=== PATIENT | male | born 2000 | race Hispanic/Latino ===

== ENCOUNTER 2020-03-02 18:48 | Emergency (ER) | payer OTHER, SELFPAY ==
--- NOTE | 2020-03-02 19:20 | ER ---
Nurse's Notes [facility] Name: Ike Rogers Age: 19 yrs Sex: Male : 2000 Arrival Date: 03/02/2020 Time: 18:50 Bed 17 Private MD: Diagnosis: Headache-Resolved Presentation: 03/02 19:08 Chief complaint: Patient states: missed work today because he had a migraine and had iw some chest pain but was boxing yesterday, his boss told him he needs a work note to be able to work tomorrow. Coronavirus screen: Proceed with normal triage. Patient denies a cough. Patient denies shortness of breath or difficulty breathing. Patient denies measured and/or subjective temperature greater than 100.4F prior to today's visit. Patient denies travel on a cruise ship or to a country the [facility] currently lists as an affected area. Patient denies contact with known and/or suspected case of COVID-19. Ebola Screen: Patient negative for fever greater than or equal to 101.5 degrees Fahrenheit, and additional compatible Ebola Virus Disease symptoms Patient denies exposure to infectious person. Patient denies travel to an Ebola-affected area in the 21 days before illness onset. No symptoms or risks identified at this time. Initial Sepsis Screen: Does the patient meet any 2 criteria? No. Patient's initial sepsis screen is negative. Does the patient have a suspected source of infection? No. Patient's initial sepsis screen is negative. Risk Assessment: Do you want to hurt yourself or someone else? Patient reports no desire to harm self or others. Onset of symptoms was March 02, 2020. 19:08 Method Of Arrival: Ambulatory iw 19:08 Acuity: NELSON 5 iw Triage Assessment: 19:26 Headache History: The patient has had previous headaches and this one is similar to jd3 previous episodes. Pain: Pain at worst was 10 out of 10 on a pain scale. Pain began gradually, Also complains of no other associated symptoms. Historical: - Allergies: 19:10 No Known Allergies; iw - Home Meds: 19:10 None [Active]; iw - PMHx: 19:10 None; iw - PSHx: 19:10 None; iw - Immunization history:: Adult Immunizations unknown. - Social history:: Smoking status: . Screenin:26 Abuse screen: Denies threats or abuse. Nutritional screening: No deficits noted. jd3 Tuberculosis screening: No symptoms or risk factors identified. Fall Risk Ambulatory Aid- None/Bed Rest/Nurse Assist (0 pts). Gait- Normal/Bed Rest/Wheelchair (0 pts) Mental Status- Oriented to own ability (0 pts). Total Quinonez Fall Scale indicates No Risk (0-24 pts). Assessment: 19:24 General: Appears in no apparent distress. comfortable, Behavior is calm, cooperative, jd3 appropriate for age. Pain: Denies pain. Neuro: Level of Consciousness is awake, alert, obeys commands, Oriented to person, place, time, situation, Reports headache that is resolved. Cardiovascular: Denies chest pain, Capillary refill < 3 seconds Patient's skin is warm and dry. Respiratory: Airway is patent Respiratory effort is even, unlabored, Respiratory pattern is regular, symmetrical, Denies cough, shortness of breath. GI: No signs and/or symptoms were reported involving the gastrointestinal system. : No signs and/or symptoms were reported regarding the genitourinary system. EENT: No signs and/or symptoms were reported regarding the EENT system. Derm: Skin is intact, Skin is dry, Skin is normal, Skin temperature is warm. Musculoskeletal: Circulation, motion, and sensation intact. Range of motion: intact in all extremities. 19:27 Reassessment: Patient appears in no apparent distress at this time. Patient and/or jd3 family updated on plan of care and expected duration. Pain level reassessed. Patient is alert, oriented x 3, equal unlabored respirations, skin warm/dry/pink. pt reported understanding of discharge instructions. even and steady gait upon discharge. Vital Signs: 19:08 BP 137 / 81; Pulse 80; Resp 16; Temp 97.8; Pulse Ox 98% on R/A; Pain 0/10; iw ED Course: 18:50 Patient arrived in ED. ag5 19:01 Lewis Valadez NP is PHCP. pm1 19:01 Lobito Cano MD is Attending Physician. pm1 19:10 Triage completed. iw 19:24 Marito Lopez RN is Primary Nurse. jd3 19:24 Arm band placed on. jd3 19:25 Patient has correct armband on for positive identification. Bed in low position. Call jd3 light in reach. Side rails up X 1. Pulse ox on. NIBP on. 19:27 No provider procedures requiring assistance completed. Patient did not have IV access jmoe during this emergency room visit. Administered Medications: No medications were administered Outcome: 19:20 Discharge ordered by . pm1 19: Discharged to home ambulatory. jd3 19: Condition: stable 19:27 Discharge instructions given to patient, Instructed on discharge instructions, follow up and referral plans. Demonstrated understanding of instructions, follow-up care. 19:28 Patient left the ED. ilsa Signatures: Alissa Jose, RN Lewis Esposito NP CURRICULUM COUNSELOR pm1 Marito Lopez RN RN trinityd3 Sugey Suazo ag5
--- NOTE | 2020-03-02 19:20 | EDPHYS ---
Physician Documentation [facility] Name: Ike Rogers Age: 19 yrs Sex: Male : 2000 Arrival Date: 03/02/2020 Time: 18:50 Bed 17 Private MD: ED Physician Lobito Cano HPI: 03/02 19:16 This 19 yrs old Male presents to ER via Ambulatory with complaints of pm1 Headache, Medical Clearance. 19:16 The patient complains of pain to the forehead. The patient describes the headache as pm1 aching. Onset: The symptoms/episode began/occurred this morning. Associated signs and symptoms: The patient has no apparent associated signs or symptoms. Severity of symptoms: in the emergency department the pain has resolved. The symptoms are alleviated by nothing. did not require any medications the symptoms are aggravated by nothing. The patient has not recently seen a physician. Patient had a headache this morning and he decided not to go to work. His headache resolved without any intervention at home. He was told by his boss that he needed a work release to go back to work. Historical: - Allergies: 19:10 No Known Allergies; iw - Home Meds: 19:10 None [Active]; iw - PMHx: 19:10 None; iw - PSHx: 19:10 None; iw - Immunization history:: Adult Immunizations unknown. - Social history:: Smoking status: . ROS: 19:16 Constitutional: Negative for fever, chills, and weight loss, Eyes: Negative for injury, pm1 pain, redness, and discharge, ENT: Negative for injury, pain, and discharge, Neck: Negative for injury, pain, and swelling, Cardiovascular: Negative for chest pain, palpitations, and edema, Respiratory: Negative for shortness of breath, cough, wheezing, and pleuritic chest pain, Abdomen/GI: Negative for abdominal pain, nausea, vomiting, diarrhea, and constipation, Back: Negative for injury and pain, MS/Extremity: Negative for injury and deformity, Skin: Negative for injury, rash, and discoloration. 19:16 Neuro: Positive for headache, Negative for numbness, tingling, weakness. Exam: 19:16 Constitutional: This is a well developed, well nourished patient who is awake, alert, pm1 and in no acute distress. Head/Face: Normocephalic, atraumatic. Eyes: Pupils equal round and reactive to light, extra-ocular motions intact. Lids and lashes normal. Conjunctiva and sclera are non-icteric and not injected. Cornea within normal limits. Periorbital areas with no swelling, redness, or edema. ENT: Nares patent. No nasal discharge, no septal abnormalities noted. Tympanic membranes are normal and external auditory canals are clear. Oropharynx with no redness, swelling, or masses, exudates, or evidence of obstruction, uvula midline. Mucous membranes moist. Neck: Trachea midline, no thyromegaly or masses palpated, and no cervical lymphadenopathy. Supple, full range of motion without nuchal rigidity, or vertebral point tenderness. No Meningismus. Chest/axilla: Normal chest wall appearance and motion. Nontender with no deformity. No lesions are appreciated. 19:16 Abdomen/GI: Soft, non-tender, with normal bowel sounds. No distension or tympany. No guarding or rebound. No evidence of tenderness throughout. Back: No spinal tenderness. No costovertebral tenderness. Full range of motion. Skin: Warm, dry with normal turgor. Normal color with no rashes, no lesions, and no evidence of cellulitis. MS/ Extremity: Pulses equal, no cyanosis. Neurovascular intact. Full, normal range of motion. 19:16 Cardiovascular: Exam negative for acute changes, Rate: normal, Rhythm: regular, Pulses: no pulse deficits are appreciated. 19:16 Respiratory: Exam negative for acute changes, respiratory distress, shortness of breath. 19:16 Neuro: Exam negative for acute changes, Orientation: is normal, Mentation: is normal, Motor: is normal, moves all fours, Sensation: is normal, no obvious gross deficits, Gait: is steady, at a normal pace, without difficulty. Vital Signs: 19:08 BP 137 / 81; Pulse 80; Resp 16; Temp 97.8; Pulse Ox 98% on R/A; Pain 0/10; iw MDM: 19:08 Patient medically screened. pm1 19:16 Data reviewed: vital signs. Data interpreted: Pulse oximetry: on room air is 98 %. pm1 Interpretation: normal. 19:18 Counseling: I had a detailed discussion with the patient and/or guardian regarding: the pm1 historical points, exam findings, and any diagnostic results supporting the discharge/admit diagnosis, the need for outpatient follow up, to return to the emergency department if symptoms worsen or persist or if there are any questions or concerns that arise at home. Administered Medications: No medications were administered Disposition: 20:00 Co-signature as Attending Physician, Lobito Cano MD. rn Disposition: 03/02/20 19:20 Discharged to Home. Impression: Headache - Resolved. - Condition is Stable. - Discharge Instructions: General Headache Without Cause. - Work release form, Medication Reconciliation Form, Thank You Letter, Antibiotic Education, Prescription Opioid Use form. - Follow up: Emergency Department; When: As needed; Reason: Worsening of condition. Follow up: Private Physician; When: 2 - 3 days; Reason: Recheck today's complaints, Continuance of care, Re-evaluation by your physician. - Problem is new. - Symptoms have improved. Signatures: Alissa Jose RN RN iw Nieto, Roman, MD MD rn Marinas, Patrick, CAN CUTTER CAN CUTTER pm1 Marito Lopez RN RN jd3 Corrections: (The following items were deleted from the chart) 19:28 19:20 03/02/2020 19:20 Discharged to Home. Impression: Headache - Resolved. Condition jd3 is Stable. Forms are Medication Reconciliation Form, Thank You Letter, Antibiotic Education, Prescription Opioid Use. Follow up: Emergency Department; When: As needed; Reason: Worsening of condition. Follow up: Private Physician; When: 2 - 3 days; Reason: Recheck today's complaints, Continuance of care, Re-evaluation by your physician. Problem is new. Symptoms have improved. pm1
[2020-03-02 19:43] VITALS: BP 137/81; TEMP 97.8; O2SAT 98
== END 2020-03-02 19:28 | disposition home or self-care (01) ==
LOC: ER 18:48
DX: R51 Headache (principal)
CPT/HCPCS: 99283

== ENCOUNTER 2020-03-07 13:13 | Emergency (ER) | payer SELFPAY ==
--- NOTE | 2020-03-07 13:32 | EDPHYS ---
Physician Documentation [facility] Name: Ike Rogers Age: 19 yrs Sex: Male : 2000 Arrival Date: 03/07/2020 Time: 13:15 Bed 14 Private MD: ED Physician Lobito Cano HPI: 03/07 13:28 This 19 yrs old Male presents to ER via Unassigned with complaints of R/O rn COVID. 13:28 Reports feels fine, no fever, no cough/sob/diarrhea/abd issues. Here because his rn [id number] or future [id number] will not allow him to visit unless has doctors note that states he does not have COVID-19. He is asymptomatic. . The patient has not experienced similar symptoms in the past. The patient has not recently seen a physician. Historical: - Allergies: 13:17 No Known Allergies; aa5 - PMHx: 13:17 None; aa5 - Immunization history:: Flu vaccine status is unknown. - Social history:: Smoking status: Patient reports the use of cigarette tobacco products. - Family history:: not pertinent. - Hospitalizations: : No recent hospitalization is reported. ROS: 13:28 Constitutional: Negative for fever, chills, and weight loss, Eyes: Negative for injury, rn pain, redness, and discharge, Neck: Negative for injury, pain, and swelling, Cardiovascular: Negative for chest pain, palpitations, and edema, Respiratory: Negative for shortness of breath, cough, wheezing, and pleuritic chest pain, Abdomen/GI: Negative for abdominal pain, nausea, vomiting, diarrhea, and constipation, MS/Extremity: Negative for injury and deformity, Skin: Negative for injury, rash, and discoloration, Neuro: Negative for headache, weakness, numbness, tingling, and seizure. Exam: 13:28 Constitutional: This is a well developed, well nourished patient who is awake, alert, rn and in no acute distress. Head/Face: Normocephalic, atraumatic. Eyes: Lids and lashes normal. Conjunctiva and sclera are non-icteric and not injected. Periorbital areas with no swelling, redness, or edema. Respiratory: Speaking full sentences, non-labored, laughing Neuro: Awake and alert, GCS 15, oriented to person, place, time, and situation. Cerebellar exam normal. Normal gait. Vital Signs: 13:17 BP 120 / 78; Pulse 66; Resp 16 S; Temp 97.8(TE); Pulse Ox 99% on R/A; Pain 0/10; aa5 MDM: 13:17 Patient medically screened. rn 13:28 Differential Diagnosis. Data reviewed: vital signs, nurses notes, and as a result, I rn will discharge patient. Counseling: I had a detailed discussion with the patient and/or guardian regarding: the need for outpatient follow up, to return to the emergency department if symptoms worsen or persist or if there are any questions or concerns that arise at home. Special discussion: I discussed with the patient/guardian in detail that at this point there is no indication for admission to the hospital. It is understood, however, that if the symptoms persist or worsen the patient needs to return immediately for re-evaluation. ED course: Explained to patient that there are carriers that remain asymptomatic and unable to give medical clearance from COVID-19 without testing, but does not need testing at this point emergently just to visit another person by permission. Recommend drive-through testing or returning if symptoms develop. . Administered Medications: No medications were administered Disposition: 03/07/20 13:32 Discharged to Home. Impression: Encounter for general adult medical examination without abnormal findings. - Condition is Stable. - Discharge Instructions: Health Maintenance, Male. - Medication Reconciliation Form, Thank You Letter, Antibiotic Education, Prescription Opioid Use form. - Follow up: Private Physician; When: As needed; Reason: Recheck today's complaints, Re-evaluation by your physician. - Problem is new. - Symptoms are unchanged. Signatures: Lobito Cano MD MD rn Calderon, Audri, RN RN aa5 Corrections: (The following items were deleted from the chart) 13:41 13:32 03/07/2020 13:32 Discharged to Home. Impression: Encounter for general adult aa5 medical examination without abnormal findings. Condition is Stable. Forms are Medication Reconciliation Form, Thank You Letter, Antibiotic Education, Prescription Opioid Use. Follow up: Private Physician; When: As needed; Reason: Recheck today's complaints, Re-evaluation by your physician. Problem is new. Symptoms are unchanged. rn
--- NOTE | 2020-03-08 13:44 | ER ---
Nurse's Notes [facility] Name: Ike Rogers Age: 19 yrs Sex: Male : 2000 Arrival Date: 03/07/2020 Time: 13:15 Bed 14 Private MD: Diagnosis: Encounter for general adult medical examination without abnormal findings Presentation: 03/07 13:17 Chief complaint: Patient states: "I just need a doctor's excuse saying I don't have the aa5 coronavirus so I can go see my fiancee because her father is protective and he won't let me go see her unless I have a doctor's note". Pt denies any symptoms. 13:17 Method Of Arrival: Ambulatory aa5 13:17 Acuity: NELSON 5 aa5 13:17 Coronavirus screen: Proceed with normal triage. Patient denies a cough. Patient denies aa5 shortness of breath or difficulty breathing. Patient denies measured and/or subjective temperature greater than 100.4F prior to today's visit. Patient denies travel on a cruise ship or to a country the [facility] currently lists as an affected area. Patient denies contact with known and/or suspected case of COVID-19. Ebola Screen: Patient negative for fever greater than or equal to 101.5 degrees Fahrenheit, and additional compatible Ebola Virus Disease symptoms. Initial Sepsis Screen: Does the patient meet any 2 criteria? No. Patient's initial sepsis screen is negative. Does the patient have a suspected source of infection? No. Patient's initial sepsis screen is negative. Risk Assessment: Do you want to hurt yourself or someone else? Patient reports no desire to harm self or others. Onset of symptoms was February 2020. Historical: - Allergies: 13:17 No Known Allergies; aa5 - PMHx: 13:17 None; aa5 - Immunization history:: Flu vaccine status is unknown. - Social history:: Smoking status: Patient reports the use of cigarette tobacco products. - Family history:: not pertinent. - Hospitalizations: : No recent hospitalization is reported. Screenin:18 Abuse screen: Denies threats or abuse. Nutritional screening: No deficits noted. aa5 Tuberculosis screening: No symptoms or risk factors identified. Fall Risk None identified. Assessment: 13:17 General: Appears comfortable, Behavior is calm, cooperative. Pain: Denies pain. Neuro: aa5 Level of Consciousness is awake, alert, obeys commands, Oriented to person, place, time, situation. Cardiovascular: Patient's skin is warm and dry. Respiratory: Airway is patent Respiratory effort is even, unlabored, Respiratory pattern is regular, symmetrical. GI: No signs and/or symptoms were reported involving the gastrointestinal system. : No signs and/or symptoms were reported regarding the genitourinary system. EENT: No signs and/or symptoms were reported regarding the EENT system. Derm: Skin is pink, warm \\T\\ dry. Musculoskeletal: Range of motion: intact in all extremities. 13:35 Reassessment: Patient is alert, oriented x 3, equal unlabored respirations, skin aa5 warm/dry/pink. Vital Signs: 13:17 BP 120 / 78; Pulse 66; Resp 16 S; Temp 97.8(TE); Pulse Ox 99% on R/A; Pain 0/10; aa5 ED Course: 13:15 Patient arrived in ED. ag5 13:17 Lobito Cano MD is Attending Physician. rn 13:17 Arm band placed on. aa5 13:17 Patient has correct armband on for positive identification. aa5 13:35 No provider procedures requiring assistance completed. Patient did not have IV access aa5 during this emergency room visit. 13:41 Brittany Glover, RN is Primary Nurse. aa5 14:11 Triage completed. aa5 Administered Medications: No medications were administered Outcome: 13:32 Discharge ordered by . rn 13:35 Discharged to home ambulatory. aa5 13:35 Condition: good 13:35 Discharge instructions given to patient, Instructed on discharge instructions, follow up and referral plans. Demonstrated understanding of instructions, follow-up care. 13:37 Patient left the ED. aa5 Signatures: Lobito Cano MD MD rn Calderon, Audri, RN RN aa5 Sugey Suazo ag5 Corrections: (The following items were deleted from the chart) 14:11 13:17 Chief complaint: Patient states: "I just need a doctor's excuse saying I don't aa5 have the coronavirus so I can go see my fiancee because her father is protective and he won't let me go see her unless I have a doctor's note". Pt denies any symptoms. aa5 14:14 14:09 Coronavirus screen: Proceed with normal triage. Patient denies a cough. Patient aa5 denies shortness of breath or difficulty breathing. Patient denies measured and/or subjective temperature greater than 100.4F prior to today's visit. Patient denies travel on a cruise ship or to a country the [facility] currently lists as an affected area. Patient denies contact with known and/or suspected case of COVID-19. aa5 : 14:09 Ebola Screen: Patient negative for fever greater than or equal to 101.5 degrees aa5 Fahrenheit, and additional compatible Ebola Virus Disease symptoms aa5 : 14:09 Risk Assessment: Do you want to hurt yourself or someone else? Patient reports no [facility] desire to harm self or others. [facility] : 14: Initial Sepsis Screen: Does the patient meet any 2 criteria? No. Patient's 5 initial sepsis screen is negative. Does the patient have a suspected source of infection? No. Patient's initial sepsis screen is negative. [facility] 14: Onset of symptoms was February 2020 [place] [id number] : 14:09 Method Of Arrival: Ambulatory [place] [id number] : 14:09 Acuity: NELSON 5 [facility]5 14 13:41 Patient left the ED. [place] [id number]
== END 2020-03-07 13:41 | disposition home or self-care (01) ==
LOC: ER 13:13
DX: Z00.00 Encounter for general adult medical examination without abnormal findings (principal); Z72.0 Tobacco use
CPT/HCPCS: 99281

== ENCOUNTER 2021-11-04 15:29 | Emergency (ER) | payer SELFPAY ==
--- OUTSIDE RECORDS SUMMARY | 2021-11-04 15:32 | XMS REPORT | Continuity of Care Document ---
:[address] [facility] t Address [address] [place] [address] Care Team Providers Name Role Phone Raju_P Attending Clinician Unavailable Raju_P Admitting Clinician Unavailable Problems This patient has no known problems. Allergies, Adverse Reactions, Alerts This patient has no known allergies or adverse reactions. Medications This patient has no known medications. Procedures This patient has no known procedures. Encounters Start End Encounter Admission Attending Care Care Encounter Source Date/Time Date/Time Type Type Clinicians Facility Department ID 2020-02-27 2020-02-27 Outpatient [facility]vin[facility]P [facility] [id number] [place] 03:45:00 03:45:00 [id number] Results This patient has no known results.
[2021-11-04 16:37] LABS: Urine Blood Negative (Negative); Urine Glucose Negative (Negative); Urine Protein Negative (Negative); Urine Specific Gravity 1.025 (1.005-1.030)
[2021-11-04] MEDS ORDERED: HYDROCODONE/APAP 7.5/325 MG TAB ONE (16:39)
[2021-11-04 16:51] LABS: Urine Bacteria <20 /HPF (NONE SEEN); Urine RBC <5 /HPF (NONE SEEN)
[2021-11-04 16:52] LABS: Urine Mucus 1+ /HPF (NONE SEEN)
--- NOTE | 2021-11-04 17:05 | RAD REPORT ---
EXAM DESCRIPTION: US - Scrotum Testicles - 11/04/2021 4:51 pm CLINICAL HISTORY: right testicle pain/swelling COMPARISON: No comparisons FINDINGS: The right testicle measures 4 x 2.4 x 3.3 cm with volume of 16.7 mL. No intratesticular ma sses or evidence of testicular torsion. The left testicle measures 4 x 2 x 3.1 cm with volume of 13.2 mL. No intratesticular masses or eviden ce of testicular torsion. The right epididymis is enlarged and hypervascular. No pathologic fluid collections. Fat containing right inguinal hernia. IMPRESSION: Bilateral testicular blood flow. Mildly enlarged hyperemic right epididymis suggestive of epididymitis. Right inguinal hernia containing fat.
--- NOTE | 2021-11-04 17:18 | EDPHYS ---
Physician Documentation [facility] Name: Ike Rogers Age: 21 yrs Sex: Male : 2000 Arrival Date: 11/04/2021 Time: 15:30 Bed 18 Private MD: ED Physician Roc Perry HPI: 11/04 16:30 This 21 yrs old Male presents to ER via Ambulatory with complaints of cp Testicular Swelling, Back Pain. 16:30 The patient presents with swelling, that is mild, of the right testicle, tenderness, cp that is moderate, of the right testicle. Onset: The symptoms/episode began/occurred 2 day(s) ago. Associated signs and symptoms: Pertinent negatives: abdominal pain, constipation, diarrhea, dysuria, fever, hematuria, vomiting, penile discharge. Severity of symptoms: in the emergency department the symptoms are unchanged. Historical: - Allergies: 15:51 No Known Allergies; iw - Home Meds: 15:51 None [Active]; iw - PMHx: 15:51 None; iw - PSHx: 15:51 None; iw - Immunization history:: Client reports having NOT received the Covid vaccine. - Social history:: Smoking status: Patient reports the use of cigarette tobacco products, denies chronic smoking, but will smoke occasionally. ROS: 16:35 : Positive for testicular pain testicular swelling, Negative for urinary symptoms, cp penile discharge, penile pain. 16:35 Eyes: Negative for injury, pain, redness, and discharge. cp 16:35 Constitutional: Negative for body aches, chills, fever, poor PO intake. 16:35 Respiratory: Negative for cough, wheezing. 16:35 Abdomen/GI: Negative for abdominal pain, nausea, vomiting, and diarrhea. 16:35 Skin: Negative for rash. 16:35 Neuro: Negative for headache, weakness. 16:35 All other systems are negative. Exam: 16:40 Constitutional: The patient appears in no acute distress, alert, awake, non-toxic, well cp developed, well nourished. 16:40 Head/Face: Normocephalic, atraumatic. cp 16:40 Eyes: Periorbital structures: appear normal, Conjunctiva: normal, no exudate, no injection, Sclera: no appreciated abnormality, Lids and lashes: appear normal, bilaterally. 16:40 ENT: External ear(s): are unremarkable, Nose: is normal, Mouth: Lips: moist, Oral mucosa: moist, Posterior pharynx: Airway: no evidence of obstruction, patent. 16:40 Chest/axilla: Inspection: normal. 16:40 Cardiovascular: Rate: normal. 16:40 Respiratory: the patient does not display signs of respiratory distress, Respirations: normal, no use of accessory muscles, no retractions, labored breathing, is not present. 16:40 Abdomen/GI: Inspection: abdomen appears normal, Bowel sounds: active, all quadrants, Palpation: soft, in all quadrants, nontender, in all quadrants, rebound tenderness, is not appreciated, involuntary guarding, is not appreciated. 16:40 Back: ROM is normal. 16:40 : Male external genitalia: swelling: of the right testicle is noted, that is mild, tenderness, of the right testicle is noted, that is moderate, Sexual behavior: the patient is sexually active, and reports a single partner. 16:40 Skin: no rash present. Vital Signs: 15:49 BP 122 / 71; Pulse 92; Resp 16; Temp 97.2; Pulse Ox 100% on R/A; Weight 74.84 kg; iw Height 5 ft. 10 in. (177.80 cm); Pain 8/10; 17:49 BP 118 / 73; Pulse 87; Pulse Ox 100% on R/A; ap3 15:49 Body Mass Index 23.67 (74.84 kg, 177.80 cm) iw MDM: 16:16 Patient medically screened. cp 17:00 Differential diagnosis: urethritis, epididymitis, testicular mass, orchitis, std. cp 17:17 Data reviewed: vital signs, nurses notes, lab test result(s), radiologic studies, cp ultrasound. 17:17 Counseling: I had a detailed discussion with the patient and/or guardian regarding: the cp historical points, exam findings, and any diagnostic results supporting the discharge/admit diagnosis, lab results, radiology results, to return to the emergency department if symptoms worsen or persist or if there are any questions or concerns that arise at home. Response to treatment: the patient's symptoms have mildly improved after treatment, and as a result, I will discharge patient. 11/04 16:26 Order name: Urine Microscopic Only; Complete Time: 17:07 ww 11/04 17:08 Interpretation: Normal except: UWBC 5-10. cp 11/04 16:37 Order name: Urine Dipstick-Ancillary; Complete Time: 17:07 EDID 11/04 16:26 Order name: US Scrotum Testicles; Complete Time: 17:07 ww 11/04 17:08 Interpretation: Report reviewed. cp 11/04 16:52 Order name: Urine Culture EDID 11/04 16:26 Order name: Urine Dipstick-Ancillary (obtain specimen); Complete Time: 16:37 ww Administered Medications: 16:41 Drug: Hydrocodone-Acetaminophen (7.5 mg-325 mg) 1 tabs {Note: RASS 0.} Route: PO; jg9 17:48 Follow up: Response: No adverse reaction ap3 17:48 Drug: Rocephin (cefTRIAXone) 250 mg Route: IM; Site: right gluteus; ap3 17:48 Follow up: Response: No adverse reaction ap3 17:48 Drug: Zithromax (azithromycin) 1 grams Route: PO; ap3 17:48 Follow up: Response: No adverse reaction ap3 17:48 Drug: Ibuprofen 800 mg Route: PO; ap3 17:48 Follow up: Response: No adverse reaction ap3 Disposition: 11/05 17:07 Co-signature as Attending Physician, Roc Perry MD I agree with the assessment and kdr plan of care. Disposition Summary: 11/04/21 17:18 Discharge Ordered Location: Home cp Problem: new cp Symptoms: have improved cp Condition: Stable cp Diagnosis - Epididymitis - right cp Followup: cp - With: Alberto Chaudhari MD - When: 2 - 3 days - Reason: Worsening of condition Discharge Instructions: - Discharge Summary Sheet cp - Epididymitis cp - Testicular Self-Exam cp Forms: - Medication Reconciliation Form cp - Thank You Letter cp - Antibiotic Education cp - Prescription Opioid Use cp Prescriptions: - Doxycycline Hyclate 100 mg Oral Tablet - take 1 tablet by ORAL route every 12 hours; 20 tablet; Refills: 0, Product cp Selection Permitted - Diclofenac Sodium 75 mg Oral Tablet Sustained Release - take 1 tablet by ORAL route 2 times per day; 30 tablet; Refills: 0, Product cp Selection Permitted Signatures: Dispatcher [facility] Roc Lepe MD MD kdr Williams, Irene, RN RN Zaho Baker PA PA cp Kathi García, RN RN ap3 Yumi Werner jg9 Ruby Conte, RN RN ww
--- NOTE | 2021-11-04 17:18 | ER ---
Nurse's Notes [facility] Name: Ike Rogers Age: 21 yrs Sex: Male : 2000 Arrival Date: 11/04/2021 Time: 15:30 Bed 18 Private MD: Diagnosis: Epididymitis-right Presentation: 11/04 15:49 Chief complaint: Patient states: swelling to right testicle and pain X 2 days ago, no iw injury, did some heavy lifting this past weekend , also has sharp pain in spine when he breathes in. Coronavirus screen: At this time, the client does not indicate any symptoms associated with coronavirus-19. Ebola Screen: Patient negative for fever greater than or equal to 101.5 degrees Fahrenheit, and additional compatible Ebola Virus Disease symptoms Patient denies exposure to infectious person. Patient denies travel to an Ebola-affected area in the 21 days before illness onset. No symptoms or risks identified at this time. Initial Sepsis Screen: Does the patient meet any 2 criteria? No. Patient's initial sepsis screen is negative. Does the patient have a suspected source of infection? No. Patient's initial sepsis screen is negative. Risk Assessment: Do you want to hurt yourself or someone else? Patient reports no desire to harm self or others. Onset of symptoms was November 02, 2021. 15:49 Method Of Arrival: Ambulatory iw 15:49 Acuity: NELSON 3 iw Triage Assessment: 16:25 General: Appears uncomfortable, Behavior is calm, cooperative, appropriate for age. ap3 Pain: Complains of pain in groin Pain began suddenly, 2-3 days ago. Neuro: Level of Consciousness is awake, alert, obeys commands, Oriented to person, place, time, situation, Appropriate for age Gait is steady, Speech is normal. Cardiovascular: Patient's skin is warm and dry. Respiratory: Airway is patent Respiratory effort is even, unlabored, Respiratory pattern is regular, symmetrical. Musculoskeletal: Swelling present in scrotum. Historical: - Allergies: 15:51 No Known Allergies; iw - Home Meds: 15:51 None [Active]; iw - PMHx: 15:51 None; iw - PSHx: 15:51 None; iw - Immunization history:: Client reports having NOT received the Covid vaccine. - Social history:: Smoking status: Patient reports the use of cigarette tobacco products, denies chronic smoking, but will smoke occasionally. Screenin:54 Abuse screen: Denies threats or abuse. Nutritional screening: No deficits noted. ap3 Tuberculosis screening: No symptoms or risk factors identified. Fall Risk None identified. Assessment: 16:32 Reassessment: patient provided with urinal and education on proper urine collection. ap3 patient verbalized understanding. Neuro: Level of Consciousness is awake, alert, obeys commands. 16:47 Reassessment: ultrasound leaving bedside. ap3 Vital Signs: 15:49 BP 122 / 71; Pulse 92; Resp 16; Temp 97.2; Pulse Ox 100% on R/A; Weight 74.84 kg; iw Height 5 ft. 10 in. (177.80 cm); Pain 8/10; 17:49 BP 118 / 73; Pulse 87; Pulse Ox 100% on R/A; ap3 15:49 Body Mass Index 23.67 (74.84 kg, 177.80 cm) iw ED Course: 15:30 Patient arrived in ED. as 15:51 Triage completed. iw 15:54 Kathi García, RN is Primary Nurse. ap3 15:54 Arm band placed on right wrist. ap3 15:55 Patient has correct armband on for positive identification. Bed in low position. Call ap3 light in reach. Side rails up X 1. Placed in gown. Door closed. Noise minimized. 16:06 Zhao Pineda PA is PHCP. cp 16:06 Roc Perry MD is Attending Physician. cp 16:51 US Scrotum Testicles In Process Unspecified. EDMS 17:13 Nurse Practitioner and/or Physician Cleaning Associate to see patient. ap3 17:17 Alberto Chaudhari MD is Referral Physician. cp 17:49 No provider procedures requiring assistance completed. Patient did not have IV access ap3 during this emergency room visit. Administered Medications: 16:41 Drug: Hydrocodone-Acetaminophen (7.5 mg-325 mg) 1 tabs {Note: RASS 0.} Route: PO; jg9 17:48 Follow up: Response: No adverse reaction ap3 17:48 Drug: Rocephin (cefTRIAXone) 250 mg Route: IM; Site: right gluteus; ap3 17:48 Follow up: Response: No adverse reaction ap3 17:48 Drug: Zithromax (azithromycin) 1 grams Route: PO; ap3 17:48 Follow up: Response: No adverse reaction ap3 17:48 Drug: Ibuprofen 800 mg Route: PO; ap3 17:48 Follow up: Response: No adverse reaction ap3 Outcome: 17:18 Discharge ordered by . gabriel 17:49 Discharged to home ambulatory. ap3 17:49 Condition: good 17:49 Discharge instructions given to patient, Instructed on discharge instructions, follow up and referral plans. medication usage, Demonstrated understanding of instructions, follow-up care, medications, Prescriptions given X 2. 17:50 Patient left the ED. ap3 Signatures: Dispatcher [employer] EDLisbeth Cervantes Irene, RN RN Zhao Baker PA PA cp Prokisch, Amanda, RN RN ap3 Yumi Werner jg9
[2021-11-04] MEDS ORDERED: AZITHROMYCIN 250 MG TAB ONE (17:20)
[2021-11-04] MEDS ORDERED: IBUPROFEN 400 MG TAB ONE (17:21)
[2021-11-04] MEDS ORDERED: WATER FOR INJ,STERILE 10 ML ONE (17:21)
[2021-11-04] MEDS ORDERED: CEFTRIAXONE 250 MG/VIAL ONE (17:21)
[2021-11-04 18:09] VITALS: TEMP 97.2; O2SAT 100
[2021-11-04 18:10] VITALS: BP 118/73
== END 2021-11-04 17:50 | disposition home or self-care (01) ==
LOC: ER 15:29
DX: N45.1 Epididymitis (principal)
CPT/HCPCS: 76870; 81003; 81015; 87086; 87088; 96372; 99283; J0696

== ENCOUNTER 2022-12-02 10:20 | Day surgery (SDC) | payer BC, SELFPAY ==
--- NOTE | 2022-12-01 12:35 | RAD REPORT ---
EXAM DESCRIPTION: CT - Pelvis Wo Cont - 12/01/2022 12:07 pm CLINICAL HISTORY: Pre op pending inguinal hernia repair COMPARISON: No comparisons TECHNIQUE: Noncontrast CT of the pelvis was obtained. All CT scans are performed using dose optimization technique as appropriate and may include automated exposure control or mA/KV adjustment according to patient size. FINDINGS: No bowel obstruction is identified. The bladder is unremarkable. The prostate is unremarka ble. Normal appendix. The ostia structures are intact. No significant inguinal hernias identified. The inguinal hernia (s) may only be apparent with provoca tive maneuvers. IMPRESSION: Pelvic CT is within normal limits. See above.
[2022-12-02] MEDS ORDERED: CEFAZOLIN SODIUM 2 GM/VIAL ONE (10:37)
[2022-12-02] MEDS ORDERED: Ringers Lactate 1,000 ML IV ONE ×2 (10:37→18:27)
[2022-12-02] MEDS ORDERED: FENTANYL CITR 100 MCG/2 ML ONE (13:46)
[2022-12-02] MEDS ORDERED: LIDOCAINE 2% MPF 5 ML VIAL ONE (13:47)
[2022-12-02] MEDS ORDERED: propofoL 200 MG/20 ML VIAL IV ONE (13:47)
[2022-12-02] MEDS ORDERED: MIDAZOLAM HCL 2 MG/2 ML INJ ONE (13:47)
[2022-12-02] MEDS ORDERED: NS 0.9% VIAL 10 ML ONE (14:24)
[2022-12-02] MEDS ORDERED: BUPIVACAINE 0.25% PF 10 ML VIAL ONE (14:31)
[2022-12-02] MEDS ORDERED: KETOROLAC 30 MG/ML INJ ONE (14:32)
[2022-12-02] MEDS ORDERED: ONDANSETRON 4 MG/2 ML VIAL ONE (15:07)
--- NOTE | 2022-12-02 15:38 | P.OP ---
Preoperative diagnosis: RIGHT Inguinal Hernia Postoperative diagnosis: RIGHT Inguinal Hernia Primary procedure: Open RIGHT Inguinal Hernia Repair with mesh Anesthesia: GETA + Local Estimated blood loss: <5cc Specimen: none Findings: Direct Inguinal Hernia - reducible Complications: None Implants: Bard Perfix Medium plug and patch Transferred to: Recovery Room Condition: Good
[2022-12-02 16:13] VITALS: O2SAT 100
[2022-12-02] MEDS: HYDROMORPHONE HCL 1 MG/ML INJ ONE ×3 (16:17→16:38)
[2022-12-02] MEDS ORDERED: HYDROCODONE/APAP 10/325 TAB PO ONE (17:05)
[2022-12-02] MEDS ORDERED: HYDROCODONE/APAP 10/325 TAB ONE (17:11)
[2022-12-02 17:14] VITALS: BP 135/69; TEMP 97.1
--- NOTE | 2022-12-02 20:38 | OP ---
Date of Procedure: 12/02/2022 Surgeon: Wai Camacho MD, Preoperative Diagnosis: Right inguinal hernia. Postoperative Diagnosis: Right inguinal hernia. Procedure: Open right inguinal hernia repair with mesh. Anesthesia: General endotracheal plus local with 0.25% Marcaine. Estimated Blood Loss: Less than 5 cc. Specimen: None. Findings: A direct reducible inguinal hernia noted. Complications: None. Implants: Bard PerFix Medium plug and patch hernia repair system. Disposition: The patient was transferred to recovery room in good condition. Procedure In Detail: After informed consent was obtained, the patient was prepped and draped in the usual sterile fashion. After adequate anesthesia was achieved, I made a low inguinal incision down t hrough subcutaneous tissues using a 15 blade. I dissected down through Camper fat and Makayla fascia to expose the external oblique aponeurosis. This was opened sharply with a 15 blade in the direction of the fibers. I then opened it in its entirety using Metzenbaum scissors, protecting the ilioingui nal and iliohypogastric nerves throughout. The spermatic cord and structures were then encircled wit h a [place] drain and allowed for dissection of the cord structures. I then identified a defect in t he floor of the inguinal canal consistent with a direct inguinal hernia. A Valsalva maneuver was abl e to reproduce this hernia, but it was reducible when Valsalva was not initiated. As such, I opened the fibers of the floor of the inguinal canal, dissected the preperitoneal adipose tissue, and return ed it to the normal anatomic position. I then incised a Bard Medium plug and placed it through the f gina of the inguinal canal and unfurled it circumferentially fixing it at 4 points circumferentially around the structures reconstituting the floor of the inguinal canal. At this point, I closed the fl oor of the inguinal canal over the top of the plug. At this point, the Bard patch was then brought i n, hydrated appropriately, and I placed it around the spermatic cord and structures after sizing it a ppropriately and trimming the edges. I then secured it to the pubic tubercle on the medial side and placed the patch along the shelving edge of the internal oblique aponeurosis in an interrupted fashio n with 2-0 PDS sutures and the internal portion of the inguinal ligament circumferentially around and reconstituted the deep inguinal ring. No direct hernia defects were palpated throughout the procedu re. Two 0 PDS sutures were used at this point with the exception of the 2-0 Vicryl used to close the floor of the inguinal canal. At this point, the area was copiously irrigated. I closed the externa l oblique aponeurosis over the top using a 3-0 Vicryl suture in a running fashion. I then reapproxim ated Camper fat and Makayla fascia using the same set of 3-0 Vicryl suture in an interrupted fashion. Deep dermal plane was closed with the same said 3-0 Vicryl suture in an interrupted fashion. Skin w as closed with 4-0 Monocryl in running fashion and Dermabond placed over top. The patient tolerated the procedure well without evidence of any complication and transferred to PACU in good condition. A ll counts were correct at the end of the case. CARMELLA/MAREN Voice ID: [id number] Report ID: [id number]
== END 2022-12-02 19:25 | disposition home or self-care (01) ==
LOC: OR 10:20
PROVIDERS: ATTEND Surgery
PROC: 0YU50JZ Supplement Right Inguinal Region with Synthetic Substitute, Open Approach (ICD-10-PCS; principal; 2022-12-02 12:00)
DX: K40.90 Unilateral inguinal hernia, without obstruction or gangrene, not specified as recurrent (principal)
CPT/HCPCS: 72192; 49505; J2704; J2001; J2250; J3010; A4216; J1170; J7120 ×2; J2405